=== PATIENT | male | born 1965 | race Caucasian/White ===

== ENCOUNTER 2018-03-31 12:20 | Emergency (ER) | payer BC ==
[2018-03-31] MEDS ORDERED: Ketorolac Tromethamine 30 MG/ML VIAL ONE (12:56)
[2018-03-31 13:20] LABS: #Basophils 0.2 thou/uL (0.0-0.2); #Eosinphils 0.3 thou/uL (0.0-0.7); #Lymphocytes 3.1 thou/uL (1.20-3.40); #Monocytes 0.9 thou/uL (0.11-0.59); #Neutrophils 5.4 thou/uL (1.40-6.50); %Basophils 1.5 % (0.0-1.0); %Eosinophils 2.8 % (0.0-10.0); %Lymphocytes 31.6 % (21.0-51.0); %Monocytes 9.4 % (0.0-10.0); %Neutrophils 54.7 % (42.0-75.0); Hemoglobin 15.1 g/dL (14.0-18.0); Mean Corpuscular HGB CONC 33.8 g/dL (32.0-36.0); Mean Corpuscular Hemoglobin 31.6 pg (27.0-31.0); Mean Corpuscular Volume 93.6 fL (78.0-98.0); Mean Platelet Volume 6.5 fL (7.4-10.4); Platelet Count 377 thou/uL (130-400); RBC Distribution Width 12.5 % (11.5-14.5); Red Blood Cell (RBC) Count 4.78 mill/uL (4.70-6.10); White Blood Cell (WBC) Count 9.8 thou/uL (4.8-10.8)
[2018-03-31 13:41] LABS: ALT (SGPT) 15 U/L (8-55); AST (SGOT) 14 U/L (5-34); Albumin 4.1 g/dL (3.5-5.0); Alkaline Phosphatase 90 U/L (40-150); Anion Gap 13 mmol/L (10-20); BUN (Urea Nitrogen) 8 mg/dL (8.4-25.7); Bilirubin, Total 0.5 mg/dL (0.2-1.2); CRP (Inflammatory) 2.79 mg/dL (= or < 0.5); Calc. Creatinine Clearance 0 mL/min (70-130); Calcium 9.3 mg/dL (7.8-10.44); Carbon Dioxide 25 mmol/L (22-29); Chloride 105 mmol/L (98-107); Estimated GFR-MDRD Greater than 90; Globulin 3.1 g/dL (2.4-3.5); Glucose 87 mg/dL (70-105); Potassium 3.9 mmol/L (3.5-5.1); Protein, Total 7.2 g/dL (6.0-8.3); Sodium 139 mmol/L (136-145); Uric Acid 8.2 mg/dL (3.5-7.2)
--- NOTE | 2018-03-31 13:41 | RAD ---
RIGHT KNEE 4 VIEWS: Date: 03/31/18 HISTORY: Right knee pain. FINDINGS/IMPRESSION: No fracture, dislocation, or bony destruction is seen. An osteophyte is seen arising from the anteroi nferior aspect of the patella. Soft tissue swelling is seen in the prepatellar region. POS: [facility]
[2018-03-31] MEDS ORDERED: Colchicine 0.6 MG TAB ONE (13:57)
== END 2018-03-31 14:28 | disposition home or self-care (01) ==
LOC: ERS 12:20
DX: M10.9 Gout, unspecified (principal); F17.210 Nicotine dependence, cigarettes, uncomplicated; Z79.899 Other long term (current) drug therapy
CPT/HCPCS: 36415; 80053; 83605; 84550; 85025; 85652; 86140; 96372; J1885